=== PATIENT | male | born 1995 | race Caucasian/White ===

== ENCOUNTER 2020-01-05 12:41 | Emergency (ER) | payer OTHER ==
[~2020-01-05] VITALS: Ht 170.2 cm; Wt 63.5 kg
[2020-01-05] MEDS ORDERED: HYDROcodone-ACET 10/325MG TAB PO ONE (13:00)
[2020-01-05] MEDS ORDERED: KETOROLAC TROMETH 60MG/2ML VIAL IM ONE (13:00)
[2020-01-05] MEDS ORDERED: ONDANSETRON HCL 4 MG/2 ML VIAL ONE (13:03)
[2020-01-05] MEDS ORDERED: MIDAZOLAM HCL 1MG/1ML-2 ML VIAL ONE (13:03)
[2020-01-05] MEDS ORDERED: MIDAZOLAM HCL 1MG/1ML-2 ML VIAL IV ONE (13:15)
[2020-01-05] MEDS ORDERED: ONDANSETRON HCL 4 MG/2 ML VIAL IV ONE (13:15)
[2020-01-05] MEDS ORDERED: ETOMIDATE (2MG/ML) 20ML VIAL IV ONE (13:15)
[2020-01-05 14:06] VITALS: BP 122/61
== END 2020-01-05 14:22 | disposition home or self-care (01) ==
LOC: ER 12:41
DX: S43.005A Unspecified dislocation of left shoulder joint, initial encounter (principal); X58.XXXA Exposure to other specified factors, initial encounter; Y93.89 Activity, other specified; Y92.89 Other specified places as the place of occurrence of the external cause; Y99.8 Other external cause status
CPT/HCPCS: 23650; 73030; 96372; 96374; 99285; J1885; J2250; J2405

== ENCOUNTER 2020-06-18 13:37 | Emergency (ER) | payer OTHER ==
[~2020-06-18] VITALS: Ht 180.3 cm; Wt 65.8 kg
[2020-06-18 13:56] VITALS: BP 125/59
== END 2020-06-18 16:32 | disposition home or self-care (01) ==
LOC: ER 13:37
DX: M25.551 Pain in right hip (principal); J45.909 Unspecified asthma, uncomplicated; F17.210 Nicotine dependence, cigarettes, uncomplicated; V86.56XA Driver of dirt bike or motor/cross bike injured in nontraffic accident, initial encounter; Y93.I9 Activity, other involving external motion; Y92.89 Other specified places as the place of occurrence of the external cause; Y99.8 Other external cause status
CPT/HCPCS: 73502